=== PATIENT | male | born 1995 | race Caucasian/White ===

== ENCOUNTER 2022-11-12 20:19 | Emergency (ER) | payer BC, SELFPAY ==
--- NOTE | ~2022-11-12 | CT_ITS ---
Non-contrast Head CT History: Altered mental status Technique: Axial non-contrast imaging of the brain was performed. Dose reduction technique was used on this scan by utilizing automated exposure control and iterative reconstruction technique. The dose -length product (DLP) was 681.00 mGy-cm. Findings: There is no evidence of intracranial hemorrhage, mass lesion, or acute infarct. Brain par enchyma appears normal. The ventricles and subarachnoid spaces are normal in size. The calvarium ap pears normal. The visualized paranasal sinuses and mastoid air cells are clear. Impression: No significant abnormality seen. Reviewed, dictated and finalized at location . Impression: No significant abnormality seen.
--- NOTE | ~2022-11-12 | CT_ITS ---
CT ANGIOGRAM HEAD History: Speech difficulty. Technique: Serial spiral axial images through the head were obtained during arterial phase IV injecti on of 100 cc of Omnipaque 350. 3-D postprocessing and MIP images were then reconstructed on the [facility] workstation. Dose reduction technique was used on this scan by utilizing automated exposure control and iterative reconstruction technique. The dose-length product (DLP) was 1350.71 mGy-cm. Findings: Distal vertebral arteries, basilar artery, and posterior cerebral arteries are patent. Dist al internal carotid arteries, middle cerebral arteries, and anterior cerebral arteries are patent. No large vessel occlusion. No stenosis or aneurysm. Impression: No significant vascular abnormality seen. Reviewed, dictated and finalized at location . Impression: No significant vascular abnormality seen.
[2022-11-12 20:24] VITALS: BP 142/115; PULSE 102; RESP 17; TEMP 36.4; O2SAT 99
[2022-11-13 01:40] LABS: Basophils Absolute Auto 0.1 K/mm3 (0.0-0.1); Basophils Percent Auto 0.4 % (0.2-1.2); Eosinophils Absolute Auto 0.2 K/mm3 (0-0.3); Eosinophils Percent Auto 1.8 % (0-4.4); Hemoglobin 15.6 g/dL (14.0-18.0); Immature Granulocyte Absolute 0.06 K/mm3 (0.00-0.031); Immature Granulocyte Percent A 0.5 % (0-0.5); Lymphocytes Absolute Auto 3.44 K/mm3 (0.9-3.2); Lymphocytes Percent Auto 30.2 % (18.3-44.2); Mean Corpuscular HGB Conc 33.9 g/dl (32-36); Mean Corpuscular Hemoglobin 31.1 pg (26-34); Mean Corpuscular Volume 91.6 fl (80-100); Mean Platelet Volume 9.3 fl (7.4-10.4); Monocytes Absolute Auto 0.8 K/mm3 (0.1-0.6); Monocytes Percent Auto 6.8 % (2.6-8.5); Neutrophils Absolute Auto 6.9 K/mm3 (1.3-6.7); Neutrophils Percent Auto 60.3 % (45.5-73.1); Platelet Count Result 311 k/mm3 (150-375); Red Blood Count 5.02 M/mm3 (4.6-6.20); Red Cell Distribution Width 12.1 % (11.5-14.5); White Blood Count 11.4 K/mm3 (4.5-10.0)
[2022-11-13 01:46] LABS: Appearance Urine Cloudy (Clear); Bacteria Urine Rare /hpf; Bilirubin Urine Negative (Negative); Blood Urine Trace (Negative); Color Urine Yellow (Yellow); Glucose Urine UA Negative (Negative); Ketones Urine Negative (Negative); Leukocyte Esterase Ur Negative LEU/UL (Negative); Nitrate Urine Negative (Negative); Non Pathogenic Casts 0-2; Protein Urine Negative (Negative); Specific Grav Ur 1.022 (1.001-1.035); Squamous Epithelial Cell Urine Few /hpf (Few); Urobilinogen Urine 0.2 mg/dL (<2.0); WBC Urine 0-5 /hpf; pH Urine 5.5 (5.0-9.0)
[2022-11-13 01:49] LABS: Acetaminophen < 10 ug/mL (10-30); Ethanol < 10 mg/dL (<10); Salicylate < 1.0 mg/dL (2-20)
[2022-11-13 01:50] LABS: Anion Gap 11 mmol/L (8-16); Blood Urea Nitrogen 11 mg/dL (9-20); Calcium 9.7 mg/dL (8.4-10.2); Carbon Dioxide 26 mmol/L (22-30); Chloride 102 mmol/L (98-107); Estimated CRCL calculation 176 ml/min; Estimated Glomerular Filt Rate > 60; Glucose 94 mg/dL (65-110); Sodium 139 mmol/L (137-145)
[2022-11-13 01:51] LABS: Alanine Aminotransferase 161 U/L (6-50); Albumin Level 4.6 g/dL (3.5-5.1); Alkaline Phosphatase 46 U/L (38-126); Aspartate Amino Transferase 67 U/L (17-59); Bilirubin,Total 0.9 mg/dL (0.2-1.3)
[2022-11-13 01:55] LABS: Add Urine Microscopic? YES
[2022-11-13 01:57] LABS: Amphetamine Screen Urine Negative (Negative); Barbiturate Screen Urine Negative (Negative); Benzodiazepines Screen Urine Negative (Negative); Cannabinoid Screen Urine Negative (Negative); Cocaine Screen Urine Negative (Negative); Methadone Screen Urine Negative (Negative); Opiate Screen Urine Negative (Negative); Phencyclidine Screen Urine Negative (Negative)
[2022-11-13] MEDS: SODIUM CHLORIDE 0.9% IV 1,000 ML 999 ML IV CONT (05:13)
--- NOTE | 2022-11-13 05:34 | ED.GENADULT ---
HPI - General Adult General Chief complaint: Psychiatric Symptoms <Romeo Pimentel MD - Last Filed: 11/13/22 06:18> Stated complaint: foggy <Romeo Pimentel MD - Last Filed: 11/13/22 06:18> Time Seen by Provider: 11/13/22 01:57 <Romeo Pimentel MD - Last Filed: 11/13/22 06:18> History of Present Illness HPI narrative: Patient is a 26-year-old who presents emergency department with chief complaint of feels foggy patient reports that may have been having symptoms for several days of difficulty forming words and feeling as though they are having problems speaking patient reports that they have been under a large amount of stress lately and they are thinking that this could be acute autism patient works in the mental health field and reports that they have seen several patients who had suicidal ideation recently and had been very stressed. The patient reports they have been having difficulty forming words patient reports no suicidal or homicidal ideation <Romeo Pimentel MD - Last Filed: 11/13/22 06:18> Related Data Allergies/adverse reactions: Allergies Allergy/AdvReac Type Severity Reaction Status Date / Time nickel Allergy Rash Verified 11/13/22 07:19 <Romeo Pimentel MD - Last Filed: 11/13/22 06:18> Review of Systems Review of Systems: A 10 system review of systems was completed on the patient and is negative except for what is stated in the HPI. Nursing and ancillary documentation was reviewed. <Romeo Pimentel MD - Last Filed: 11/13/22 06:18> PMFSH Social History Social History: Social History Substance use type: does not use <Romeo Pimentel MD - Last Filed: 11/13/22 06:18> Exam Narrative: GENERAL: Well-appearing, well-nourished, and in no acute distress. HEAD: Normocephalic, atraumatic. EYES: PERRLA and EOMI. ENT: Nares clear, no rhinorrhea or epistaxis. Mucous membranes moist. NECK: Supple. CHEST: Clear to auscultation. No respiratory distress. HEART: Regular rate and rhythm. No murmur heard. Normal peripheral pulses. ABDOMEN: Soft, nontender, nondistended, normal active bowel sounds. EXTREMITIES: Normal range of motion. No edema. SKIN: Warm, dry, no rash. NEURO: No focal deficits. Alert and oriented x3. PSYCH: Normal mood and affect. <Romeo Pimentel MD - Last Filed: 11/13/22 06:18> Course Reevaluation(s) Reevaluation #1: Patient care was signed to me by Dr. Pimentel with crisis evaluation pending. Patient was evaluated by the crisis counselor and patient is not homicidal or suicidal and does feel safe with having close outpatient follow-up counseling and psychiatry. All question concerns were addressed and patient was well-appearing at time of discharge. <Veto Mcmanus MD - Last Filed: 11/13/22 18:19> Vital Signs Vital signs: Vital Signs Temperature 97.6 F 11/12/22 20:24 Pulse Rate 102 H 11/12/22 20:24 Respiratory Rate 17 11/12/22 20:24 Blood Pressure 142/115 H 11/12/22 20:24 Pulse Oximetry 99 11/12/22 20:24 Oxygen Delivery Room Air 11/12/22 20:24 Temperature 97.6 F 11/12/22 20:24 Pulse Rate 87 11/13/22 06:23 Respiratory Rate 18 11/13/22 06:23 Blood Pressure 119/70 11/13/22 06:23 Pulse Oximetry 100 11/13/22 06:23 Oxygen Delivery Room Air 11/12/22 20:24 <Romeo Pimentel MD - Last Filed: 11/13/22 06:18> Vital Signs Temperature 97.6 F 11/12/22 20:24 Pulse Rate 102 H 11/12/22 20:24 Respiratory Rate 17 11/12/22 20:24 Blood Pressure 142/115 H 11/12/22 20:24 Pulse Oximetry 99 11/12/22 20:24 Oxygen Delivery Room Air 11/12/22 20:24 Temperature 97.6 F 11/12/22 20:24 Pulse Rate 87 11/13/22 06:23 Respiratory Rate 18 11/13/22 06:23 Blood Pressure 119/70 11/13/22 06:23 Pulse Oximetry 100 11/13/22 06:23 Oxygen De
[2022-11-13 06:23] VITALS: BP 119/70; PULSE 87; RESP 18; O2SAT 100
[2022-11-13 06:53] LABS: Influenza A QL RT-PCR Negative (Negative); Influenza B QL RT-PCR Negative (Negative); SARS-CoV-2 RNA PCR Negative (Negative)
--- NOTE | 2022-11-13 07:07 | PC.NURSE ---
Patient care report given to ROCK Estrada. All questions answered at this time.
--- NOTE | 2022-11-13 08:36 | PC.NURSE ---
CRISIS IN ROOM W/ PT FOR PT EVAL.
== END 2022-11-13 10:08 | disposition home or self-care (01) ==
PROVIDERS: Emergency Provider Emergency Medicine
DX: R41.0 Disorientation, unspecified (principal); Z20.822 Contact with and (suspected) exposure to COVID-19
CPT/HCPCS: 36415; 70450; 70496; 70498; 80053; 80307; 81001; 84443; 85025; 87636; 96360; 99284; J7030; Q9967